=== PATIENT | male | born 1955 | race Caucasian/White ===

== ENCOUNTER → 2020-02-02 07:17 | Outpatient (CLI) | payer OTHER, SELFPAY | DX: N40.0 Benign prostatic hyperplasia without lower urinary tract symptoms (principal) | CPT/HCPCS: 36415; 84153 ==

== ENCOUNTER → 2020-08-15 13:14 | Outpatient (CLI) | payer OTHER, SELFPAY ==
--- NOTE | 2020-08-15 13:16 | DI.RAD.S_ITS ---
PROCEDURE: XR ANKLE RT MIN 3V INDICATIONS: chronic right ankle TECHNIQUE: 3 views of the ankle were acquired. COMPARISON: None. FINDINGS: Bones: No fractures or dislocations. Ankle mortise is normally aligned. No suspicious bony lesions. Mild degenerative joint disease of the tibiotalar joint subtalar joint and talonavicular joint. Calcaneal spurring. Soft tissues: No tibiotalar joint effusion. Achilles tendon appears normal. IMPRESSION: 1. Mild degenerative joint disease. 2. Calcaneal spurring. Dictated by: Radha Moore M.D. on 08/15/2020 at 17:27 Approved by: Radha Moore M.D. on 08/15/2020 at 17:28
== END ==
PROVIDERS: PCP Family Medicine; Referring Provider Family Medicine; Visit Provider Family Medicine
DX: G89.29 Other chronic pain (principal); M25.571 Pain in right ankle and joints of right foot; M19.071 Primary osteoarthritis, right ankle and foot; M77.31 Calcaneal spur, right foot
CPT/HCPCS: 73610

== ENCOUNTER → 2020-08-16 07:48 | Outpatient (CLI) | payer OTHER, SELFPAY ==
[2020-08-16 08:44] LABS: Alanine Aminotransferase 17 IU/L (<50); Albumin Globulin Ratio 1.5 (1.0-2.8); Alkaline Phosphatase 45 U/L (38-126); Aspartate Aminotransferase 27 IU/L (17-59); BUN Creatinine Ratio 35.6 (6-22); Bilirubin Total 0.7 mg/dL (0.2-1.3); Blood Urea Nitrogen 26 mg/dL (9-20); Calcium 9.4 mg/dL (8.4-10.2); Carbon Dioxide 29 mmol/L (22-32); Chloride 106 mmol/L (98-107); Cholesterol 177 mg/dL (140-199); Estimated Glomerular Filt Rate > 60.0 mL/min (>60); Globulin 2.6 g/dL (1.7-4.1); Glucose 92 mg/dL (80-110); HDL Cholesterol 56 mg/dL (40-60); HEMOLYSIS < 15 (0-50); LDL Cholesterol Calculated 106 mg/dL (<100); Potassium 3.9 mmol/L (3.4-5.1); Sodium 139 mmol/L (137-145); Total Protein 6.6 g/dL (6.3-8.2); Triglycerides 74 mg/dL (35-150)
[2020-08-16 09:17] LABS: TSH w/ Reflex to FT4 6.44 uIU/mL (0.47-4.68)
[2020-08-16 09:46] LABS: Free T4, Direct Thyroxine 0.85 ng/dL (0.78-2.19)
== END ==
PROVIDERS: PCP Family Medicine; Referring Provider Family Medicine; Visit Provider Family Medicine
DX: Z00.00 Encounter for general adult medical examination without abnormal findings (principal); I48.91 Unspecified atrial fibrillation
CPT/HCPCS: 36415; 80053; 80061; 83036; 84439; 84443

== ENCOUNTER → 2020-09-16 09:44 | Outpatient (CLI) | payer OTHER, SELFPAY ==
[2020-09-16 12:24] LABS: COVID19 -Nasal RAPID Negative (Negative)
== END ==
PROVIDERS: PCP Family Medicine; Visit Provider Surgery
DX: Z01.812 Encounter for preprocedural laboratory examination (principal); Z20.822 Contact with and (suspected) exposure to COVID-19
CPT/HCPCS: 87635; C9803

== ENCOUNTER 2020-09-17 11:44 | Day surgery (SDC) | payer OTHER, SELFPAY ==
[2020-09-17] MEDS: SODIUM CHLORIDE 0.9% 1,000 ML 200 ML IV (11:51)
[2020-09-17 11:57] VITALS: BP 112/68; PULSE 56; RESP 16; TEMP 36.5; O2SAT 97; BMI 25.1
--- NOTE | 2020-09-17 13:04 | PM.HP.1 ---
History of Present Illness History of Present Illness Date Patient Seen: 09/17/20 Time Patient Seen: 13:04 Chief complaint: SDC Narrative: This is a 65-year-old man with history of colon polyps. His last colonoscopy was 3 years ago. He denies any new symptoms of rectal bleeding, melena, unexplained abdominal pain, unexplained weight loss. He has atrial fibrillation, but says that it is very infrequent, he does not require medication for it. ROS Thirteen system review is otherwise negative other than as mentioned below and in HPI. PE: GENERAL: Well groomed and cooperative. Appears stated age. Answers questions promptly and appropriately. Vital signs noted. HENT: Normocephalic, atraumatic. Hearing intact. EYES: Conjunctiva pink, sclera white, no periorbital swelling. CARDIOVASCULAR: Regular rate. No pedal edema. RESPIRATORY: Non-tachypneic, breathing comfortably on room air. GASTROINTESTINAL: Abdomen soft and non-distended GENITALURINARY: No flank tenderness. MUSCULOSKELETAL: Equal tone and mass bilaterally. SKIN: Warm, dry, soft, appropriate color for ethnicity. No other lesions, rashes, or wounds. NEURO: Alert and Oriented X 3. No gross sensory deficits, or cognitive issues. PSYCH: Appropriate affect and mood. Patient History Medical History Atrial fibrillation Chronic pain of right ankle Colon polyp Surgical History Amblyopia Family & Social History Family History Brother Cancer Social History: household members significant other Tobacco & Substance use: Tobacco type cigars Smoking Status Current every day smoker alcohol intake never Substance Use Type does not use Meds Home Medications and Allergies Home Medications Medication Instructions Recorded Confirmed Type No Known Home Medications 09/17/20 09/17/20 History Allergies Allergy/AdvReac Type Severity Reaction Status Date / Time No Known Drug Allergies Allergy Verified 09/17/20 11:52 Exam Vital Signs (past 8 hours): - 09/17/20 11:57 Temperature 97.7 F Pulse Rate 56 L Respiratory Rate 16 Blood Pressure 112/68 Pulse Oximetry 97 Oxygen Delivery Method Room Air Oxygen Flow Rate 0 Assessment & Plan Assessment and plan (1) Colon polyp: Qualifiers: Colon polyp type: unspecified Colon location: unspecified part of colon Qualified Code(s): K63.5 - Polyp of colon Status: Acute (2) Atrial fibrillation: Qualifiers: Atrial fibrillation type: unspecified Qualified Code(s): I48.91 - Unspecified atrial fibrillation Status: Acute Assessment & Plan narrative: Risks and benefits of screening colonoscopy and possible polypectomy were discussed with the patient including risk of bleeding, perforation, need for additional procedures, risks of anesthesia. The patient desires to proceed with the colonoscopy procedure. COVID-19 COVID-19 status: Negative Result date/Date tested (Pos, Neg/Pending): 09/16/20 Time Spent With Patient Time with patient: 15-24 minutes Quality VTE Deep Vein Thrombosis/Pulmonary Embolism Present on Admission: No
[2020-09-17] MEDS: MIDAZOLAM 5 MG/5 ML VIAL IV (13:08)
[2020-09-17] MEDS: fentaNYL 250 MCG/5 ML INJ IV (13:11)
--- NOTE | 2020-09-17 13:11 | PM.OP.ENDO ---
Operative Date/Time/Diagnoses Date of procedure: 09/17/20 Time of procedure: 13:12 Pre-op diagnosis: Personal history of colon polyps Post-op diagnosis: same (Diverticulosis, no polyps seen on today's exam) Procedure & Clinicians Study performed: Colonoscopy Procedural sedation performed by the endoscopist Same procedure as scheduled: Yes Indications: Personal history colon polyps, due for surveillance Surgeon: Jessica Rodas Procedure Notes SCOAP/Timeout: Performed Scope withdrawal time: 6 Sedation minutes: 26 Findings: diverticulosis Specimen(s): none sent Complications: none Impression: Diverticulosis Post-procedure Recommendations: Colonscopy in 5 years (Due to history of colon polyps) and Other recommendation (Fiber) Follow up: as needed Disposition: PACU
[2020-09-17 13:46] VITALS: BP 94/62; PULSE 55; RESP 12; TEMP 37.1; O2SAT 95
[2020-09-17 13:51] VITALS: BP 96/65; PULSE 53; RESP 8; O2SAT 93
[2020-09-17 13:56] VITALS: BP 99/64; PULSE 54; RESP 8; O2SAT 93
[2020-09-17 14:02] VITALS: BP 115/70; PULSE 53; RESP 12; TEMP 36.9; O2SAT 96
[2020-09-17 14:20] VITALS: BP 111/66; PULSE 54; RESP 14; TEMP 36.3; O2SAT 96
== END 2020-09-17 14:25 | disposition home or self-care (01) ==
PROVIDERS: PCP Family Medicine; Referring Provider Surgery; Visit Provider Surgery
PROC: 0DJD8ZZ Inspection of Lower Intestinal Tract, Via Natural or Artificial Opening Endoscopic (ICD-10-PCS; CPT 45378; principal; 2020-09-17 13:00)
DX: Z12.11 Encounter for screening for malignant neoplasm of colon (principal); Z86.010 Personal history of colon polyps; F17.290 Nicotine dependence, other tobacco product, uncomplicated; I48.91 Unspecified atrial fibrillation; K57.30 Diverticulosis of large intestine without perforation or abscess without bleeding
CPT/HCPCS: 45378; 99152; J2250; J3010

== ENCOUNTER → 2020-12-13 08:18 | Outpatient (CLI) | payer OTHER, SELFPAY | PROVIDERS: PCP Family Medicine; Referring Provider Physician Assistant; Visit Provider Physician Assistant | DX: R21 Rash and other nonspecific skin eruption (principal) | CPT/HCPCS: 87070; 87077; 87147; 87186; 87205 ==

== ENCOUNTER → 2021-09-03 08:13 | Outpatient (CLI) | payer OTHER, SELFPAY ==
[2021-09-03 08:31] LABS: Add Manual Diff / Slide Review NO; Basophils Absolute Auto 0 /uL (0-100); Basophils Percent Auto 0.8 % (0-2); Eosinophils Absolute Auto 100 /uL (0-450); Eosinophils Percent Auto 1.5 % (2-4); Hematocrit 40.8 % (41-53); Hemoglobin 13.7 g/dL (13.5-17.5); Lymphocytes Absolute Auto 1800 /uL (1100-4500); Lymphocytes Percent Auto 42.3 % (25-40); Mean Corpuscular HGB Conc 33.6 % (30-36); Mean Corpuscular Hemoglobin 31.2 PG (26-34); Mean Corpuscular Volume 92.8 fL (80-100); Monocytes Absolute Auto 400 /uL (0-900); Monocytes Percent Auto 9.1 % (3-14); Neutrophils Absolute Auto 2000 /uL (1500-7000); Neutrophils Percent Auto 46.3 % (50-75); Platelet Count 208 X10^3/uL (150-400); Red Cell Distribution Width 13.9 % (11.6-14.8); White Blood Cell Count 4.2 X10^3/uL (4.5-11.0)
[2021-09-03 08:47] LABS: Alanine Aminotransferase 17 IU/L (<50); Albumin 4.4 g/dL (3.5-5.0); Albumin Globulin Ratio 1.8 (1.0-2.8); Alkaline Phosphatase 33 U/L (38-126); Aspartate Aminotransferase 24 IU/L (17-59); BUN Creatinine Ratio 24.1 (6-22); Bilirubin Total 0.8 mg/dL (0.2-1.3); Blood Urea Nitrogen 21 mg/dL (9-20); Calcium 9.2 mg/dL (8.4-10.2); Carbon Dioxide 31 mmol/L (22-32); Chloride 104 mmol/L (98-107); Cholesterol 190 mg/dL (140-199); Estimated Glomerular Filt Rate > 60 mL/min (>60); Globulin 2.5 g/dL (1.7-4.1); Glucose 95 mg/dL (80-110); HDL Cholesterol 57 mg/dL (40-60); HEMOLYSIS < 15 (0-50); LDL Cholesterol Calculated 123 mg/dL (<100); Sodium 139 mmol/L (137-145); Total Protein 6.9 g/dL (6.3-8.2); Triglycerides 49 mg/dL (35-150)
[2021-09-03 09:15] LABS: Prostate Specific Antigen Scrn 2.02 ng/mL (0.1-4.0)
[2021-09-03 10:08] LABS: TSH w/ Reflex to FT4 4.15 uIU/mL (0.47-4.68)
== END ==
PROVIDERS: PCP Family Medicine; Referring Provider Family Medicine; Visit Provider Family Medicine
DX: E03.8 Other specified hypothyroidism (principal); E78.5 Hyperlipidemia, unspecified; I48.91 Unspecified atrial fibrillation; Z12.5 Encounter for screening for malignant neoplasm of prostate
CPT/HCPCS: 36415; 80053; 80061; 84443; 85025; G0103

== ENCOUNTER → 2022-03-19 09:34 | Outpatient (CLI) | payer OTHER, SELFPAY ==
[2022-03-19 11:23] LABS: Prostate Specific Antigen 2.33 ng/mL (0.10-4.00)
== END ==
PROVIDERS: PCP Family Medicine; Referring Provider Urology; Visit Provider Urology
DX: N40.1 Benign prostatic hyperplasia with lower urinary tract symptoms (principal)
CPT/HCPCS: 36415; 84153

== ENCOUNTER → 2022-12-23 08:25 | Outpatient (CLI) | payer MEDICARE, OTHER, SELFPAY ==
[2022-12-23 09:43] LABS: Add Manual Diff / Slide Review NO; Basophils Absolute Auto 0 /uL (0-100); Basophils Percent Auto 0.6 % (0-2); Eosinophils Absolute Auto 100 /uL (0-450); Eosinophils Percent Auto 1.4 % (2-4); Hematocrit 37.2 % (41-53); Hemoglobin 12.8 g/dL (13.5-17.5); Lymphocytes Absolute Auto 1700 /uL (1100-4500); Lymphocytes Percent Auto 42.5 % (25-40); Mean Corpuscular HGB Conc 34.3 % (30-36); Mean Corpuscular Hemoglobin 30.8 PG (26-34); Mean Corpuscular Volume 89.9 fL (80-100); Monocytes Absolute Auto 400 /uL (0-900); Monocytes Percent Auto 8.9 % (3-14); Neutrophils Absolute Auto 1800 /uL (1500-7000); Neutrophils Percent Auto 46.6 % (50-75); Platelet Count 225 X10^3/uL (150-400); Red Blood Cell Count 4.14 X10^6/uL (4.5-5.9); Red Cell Distribution Width 13.7 % (11.6-14.8); White Blood Cell Count 3.9 X10^3/uL (4.5-11.0)
[2022-12-23 10:21] LABS: Alanine Aminotransferase 13 IU/L (<50); Albumin 3.7 g/dL (3.5-5.0); Albumin Globulin Ratio 1.6 (1.0-2.8); Alkaline Phosphatase 48 U/L (38-126); Aspartate Aminotransferase 19 IU/L (17-59); BUN Creatinine Ratio 26.4 (6-22); Bilirubin Total 0.3 mg/dL (0.2-1.3); Blood Urea Nitrogen 19 mg/dL (9-20); Calcium 9.2 mg/dL (8.4-10.2); Carbon Dioxide 29 mmol/L (22-32); Chloride 105 mmol/L (98-107); Cholesterol 160 mg/dL (140-199); Estimated Glomerular Filt Rate > 60 mL/min (>60); Globulin 2.3 g/dL (1.7-4.1); Glucose 90 mg/dL (80-110); HDL Cholesterol 55 mg/dL (40-60); HEMOLYSIS < 15 (0-50); LDL Cholesterol Calculated 94 mg/dL (<100); Potassium 4.3 mmol/L (3.4-5.1); Sodium 139 mmol/L (137-145); Triglycerides 53 mg/dL (35-150)
[2022-12-23 10:24] LABS: TSH w/ Reflex to FT4 8.14 uIU/mL (0.47-4.68)
[2022-12-23 10:48] LABS: Free T4, Direct Thyroxine 0.83 ng/dL (0.78-2.19)
[2022-12-23 10:49] LABS: Prostate Specific Antigen Scrn 2.65 ng/mL (0.1-4.0)
== END ==
PROVIDERS: PCP Family Medicine; Referring Provider Family Medicine; Visit Provider Family Medicine
DX: D72.829 Elevated white blood cell count, unspecified (principal); Z12.5 Encounter for screening for malignant neoplasm of prostate; I48.91 Unspecified atrial fibrillation; K63.5 Polyp of colon
CPT/HCPCS: 36415; 80053; 80061; 84439; 84443; 85025; G0103

== ENCOUNTER → 2023-01-04 09:09 | Outpatient (CLI) | payer MEDICARE, OTHER, SELFPAY | PROVIDERS: PCP Family Medicine; Visit Provider Physician Assistant | DX: L08.9 Local infection of the skin and subcutaneous tissue, unspecified (principal) | CPT/HCPCS: 87070; 87205 ==

== ENCOUNTER → 2023-01-04 09:12 | Outpatient (CLI) | payer MEDICARE, OTHER, SELFPAY ==
[2023-01-04 09:40] LABS: Add Manual Diff / Slide Review NO; Basophils Absolute Auto 0 /uL (0-100); Basophils Percent Auto 0.7 % (0-2); Eosinophils Absolute Auto 0 /uL (0-450); Eosinophils Percent Auto 0.5 % (2-4); Hematocrit 42.4 % (41-53); Hemoglobin 14.7 g/dL (13.5-17.5); Lymphocytes Absolute Auto 1500 /uL (1100-4500); Lymphocytes Percent Auto 24.5 % (25-40); Mean Corpuscular HGB Conc 34.7 % (30-36); Mean Corpuscular Hemoglobin 31.2 PG (26-34); Monocytes Absolute Auto 400 /uL (0-900); Monocytes Percent Auto 6.9 % (3-14); Neutrophils Absolute Auto 4200 /uL (1500-7000); Neutrophils Percent Auto 67.4 % (50-75); Platelet Count 228 X10^3/uL (150-400); Red Blood Cell Count 4.72 X10^6/uL (4.5-5.9); Red Cell Distribution Width 13.7 % (11.6-14.8); White Blood Cell Count 6.3 X10^3/uL (4.5-11.0)
[2023-01-04 10:03] LABS: Iron 146 ug/dL (49-181)
[2023-01-04 10:14] LABS: Percent Iron Saturation 44 % (20-50); Total Iron Binding Capacity 335 ug/dL (261-462); Transferrin 248 mg/dL (206-381)
[2023-01-04 11:02] LABS: Free T4, Direct Thyroxine 0.93 ng/dL (0.78-2.19); HEMOLYSIS 31 (0-50)
[2023-01-05 19:53] LABS: Fecal Immunochemical Test Negative (Negative)
== END ==
PROVIDERS: PCP Family Medicine; Referring Provider Family Medicine; Visit Provider Family Medicine
DX: D72.829 Elevated white blood cell count, unspecified (principal); I48.91 Unspecified atrial fibrillation; K63.5 Polyp of colon; L08.9 Local infection of the skin and subcutaneous tissue, unspecified
CPT/HCPCS: 36415; 82274; 83540; 83550; 84439; 84443; 85025; 87070; 87077; 87147; 87205

== ENCOUNTER 2023-01-16 19:13 | Emergency (ER) | payer MEDICARE, OTHER, SELFPAY ==
[2023-01-16 19:25] VITALS: BP 145/77; PULSE 50; RESP 16; TEMP 36.9; O2SAT 99; BMI 24.4
[2023-01-16] MEDS: PROPARACAINE 0.5% OPHTH SOL 1 DROPS EYE-LEFT (19:51)
[2023-01-16] MEDS: FLUORESCEIN 1 MG STRIP EYE-BOTH (19:51)
--- NOTE | 2023-01-16 20:13 | ED_ITS ---
HPI - General Adult General Chief complaint: Eye Problems Stated complaint: Something in L eye Time Seen by Provider: 01/16/23 19:19 Source: patient Mode of arrival: Ambulatory History of Present Illness HPI narrative: 67-year-old male who is here for evaluation of a potential foreign body in his left eye. He states that he thinks he got something in his left when he was grinding on a piece of metal. It did occur earlier today. He does wear glasses and was wearing these of the time but was not wearing protective eye wear. Related Data Home Medications Medication Instructions Recorded Confirmed nitroglycerin 0.1 mg/hr 1 patch topical DAILY 12/11/22 12/11/22 transdermal 24 hour patch Previous Rx's Medication Instructions Recorded zolpidem 5 mg tablet (Ambien) 5 mg PO BEDTIME PRN sleep #30 tabs 10/14/21 scopolamine base 1 mg over 3 days See Rx Instructions .Route 12/11/22 transdermal patch .COMPLEX #4 patches erythromycin 5 mg/gram (0.5 %) eye 0.5 inch EYE-LEFT BID 3 days #3.5 01/16/23 ointment grams Allergies Allergy/AdvReac Type Severity Reaction Status Date / Time No Known Drug Allergies Allergy Verified 12/11/22 08:19 Review of Systems Eyes Eyes: Reports system reviewed and no additional complaints, except as documented ENT Ears, Nose, Mouth, and Throat: Reports system reviewed and no additional complaints, except as documented Patient History Medical History Abdominal muscle strain Atrial fibrillation Chronic pain of right ankle Colon polyp Sinus bradycardia Welcome to Medicare preventive visit Surgical History Amblyopia Family History Brother Cancer Social History household members: significant other Smoking Status: Current every day smoker alcohol intake: never Smoking Status: Current every day smoker tobacco type: cigars Substance Use Type: does not use Exam Initial Vital Signs Initial Vital Signs: Vital Signs Temperature 98.4 F 01/16/23 19:25 Pulse Rate 50 L 01/16/23 19:25 Respiratory Rate 16 01/16/23 19:25 Blood Pressure 145/77 H 01/16/23 19:25 Pulse Oximetry 99 01/16/23 19:25 Oxygen Delivery Method Room Air 01/16/23 19:25 Const General: cooperative, comfortable and No ill appearing HENKS Head: normal to inspection and normocephalic Face and sinus: normal facial exam Eyes Periorbital: periorbital findings normal Eyelids: eyelids normal Pupils: PERRL Other: There were no foreign bodies noted on the left eye. I inverted the upper and lower eyelids without any indication of foreign body. Fluorescein was used. There was no corneal abrasion noted. Slit lamp was used. No foreign body noted . Pupils were equal round reactive. There was no signs of perforated globe. Course Orders Ordered: Discontinued Medications Erythromycin (Erythromycin Ophth 1 Gm Oint) 1 applic EYE-LEFT NOW ONE Stop: 01/16/23 21:33 Last Admin: 01/16/23 21:57 Dose: 1 applic Documented By: SPF Fluorescein Sodium (Fluorescein 1 Mg Strip) 1 mg EYE-BOTH NOW ONE Stop: 01/16/23 19:20 Last Admin: 01/16/23 19:51 Dose: 1 mg Documented By: SPF Proparacaine HCl (Proparacaine 0.5% Ophth Amanda) 1 drops EYE-LEFT NOW ONE Stop: 01/16/23 19:20 Last Admin: 01/16/23 19:51 Dose: 1 drop Documented By: SPF Vital Signs Vital signs: Vital Signs - 8 hr 01/16/23 22:06 Pulse Rate 50 L Respiratory Rate 16 Blood Pressure 105/69 Pulse Oximetry 98 Oxygen Delivery Method Room Air Medical Decision Making [facility] Narrative Medical decision making narrative: After an extensive evaluation of his left eye there was no foreign body noted. There were no corneal abrasions noted. I have low suspicion for open globe. Both Wood's lamp and slit lamp was used. Fluorescein was used. Did evaluate under the upper eyelid and under the lower eyelid. There is no signs of conjunctivitis. Plan will be is to discharge home with erythromycin ointment both for any antibiotic coverage and also for the soothing nature of the medication. He was given return precautions and follow-up instructions. He expressed understanding and agreement. Discharge Plan Departure Patient Disposition: Home Clinical Impression: Irritation of left eye Activity Restrictions/Additional Instructions: I do not see anything in your left eye on the exam today. I do suspect that there is quite a bit of irritation from everything has been going on. Use the antibiotic ointment like we discussed for the next couple days. If your symptoms persist you will need re-evaluated. Prescriptions: New erythromycin 5 mg/gram (0.5 %) ointment 0.5 inch EYE-LEFT BID 3 Days Qty: 3.5 0RF No Action zolpidem [Ambien] 5 mg tablet 5 mg PO BEDTIME PRN (Reason: sleep) Qty: 30 0RF nitroglycerin 0.1 mg/hr patch 24 hour 1 patch topical DAILY scopolamine base 1 mg over 3 days patch 3 day See Rx Instructions .ROUTE .COMPLEX Qty: 4 11RF Dose Instruction: APPLY 1 PATCH TOPICALLY TO THE SKIN EVERY 3 DAYS NEEDED FOR MOTION SICKNESS Rx Instructions: APPLY 1 PATCH TOPICALLY TO THE SKIN EVERY 3 DAYS NEEDED FOR MOTION SICKNESS Referrals: Titus Arora MD [Primary Care Provider] - Stand Alone Forms: Patient Portal/API
[2023-01-16] MEDS: ERYTHROMYCIN OPHTH 1 GM OINT 1 APPLIC EYE-LEFT (21:57)
[2023-01-16 22:06] VITALS: BP 105/69; PULSE 50; RESP 16; O2SAT 98
== END 2023-01-16 22:06 | disposition home or self-care (01) ==
PROVIDERS: Emergency Provider Emergency Medicine; PCP Family Medicine
DX: H57.89 Other specified disorders of eye and adnexa (principal)
CPT/HCPCS: 99282

== ENCOUNTER → 2023-03-05 16:16 | Outpatient (CLI) | payer MEDICARE, OTHER, SELFPAY ==
--- NOTE | 2023-03-05 16:21 | DI.RAD.S_ITS ---
PROCEDURE: XR KNEE LT 3V INDICATIONS: Injury to Left Knee TECHNIQUE: 3 views of the knee were acquired. COMPARISON: None. FINDINGS: Bones: No fractures or dislocations. No suspicious bony lesions. Soft tissues: No joint effusion. No suspicious soft tissue calcifications. IMPRESSION: No osseous trauma found, normal alignment. Slight narrowing of the medial compartment interspace most likely a manifestation of mild degenerative osteoarthritis. Dictated by: Titi Elias M.D. on 03/05/2023 at 16:49 Approved by: Titi Elias M.D. on 03/05/2023 at 16:49
== END ==
PROVIDERS: PCP Family Medicine; Referring Provider Family Medicine; Visit Provider Family Medicine
DX: S89.92XA Unspecified injury of left lower leg, initial encounter (principal); X58.XXXA Exposure to other specified factors, initial encounter
CPT/HCPCS: 73562

== ENCOUNTER → 2023-03-09 17:17 | Outpatient (CLI) | payer MEDICARE, OTHER, SELFPAY ==
--- NOTE | 2023-03-09 17:21 | DI.MRI.S_ITS ---
PROCEDURE: MR KNEE LT WO CON INDICATIONS: swelling and pain continue after injury TECHNIQUE: Noncontrast sagittal PD fast spin echo and T2 fast spin echo with fat saturation, sagittal 3-D FLASH with fat saturation; coronal T1 spin echo and PD fast spin echo with fat saturation, and axial PD fast spin echo with fat saturation through the knee. COMPARISON: None. FINDINGS: Image quality: Excellent. Menisci: The medial and lateral menisci demonstrate normal morphology and internal signal. The meniscal root ligaments appear intact. Cruciate ligaments: The anterior and posterior cruciate ligaments appear intact. Medial structures: The medial collateral ligament appears mildly thickened at its femoral insertion. The posterior oblique ligament, semimembranosus tendon insertions, oblique popliteal ligament, and meniscocapsular junction appear intact. Visualized portions of the pes anserinus tendons appear normal. No abnormal bursal fluid. Lateral structures: The lateral collateral ligament is thickened at its proximal insertion. The long and short heads of the biceps femoris tendon appear intact. The popliteus tendon appears normal; the popliteofibular ligament appears intact. Iliotibial band appears normal. Anterior structures: There is soft tissue swelling and edema along anterior aspect of left knee joint. Large fluid collection along anterior and medial aspect of left knee measures up to 16.8 x 2.9 x 13.2 cm in largest transverse, AP and craniocaudal dimensions containing internal septations and may indicate fluid distension of prepatellar bursa . Distal quadriceps tendinosis is seen. Proximal patellar tendinosis at its inferior patellar insertion is also noted. No full-thickness tendon rupture. Patellar alignment is normal. No femoral trochlear dysplasia or ventral trochlear prominence. No edema in the infrapatellar fat pad. Bones and cartilage: No bone marrow contusions or fractures. Mild tricompartmental osteoarthritis and low-grade chondromalacia is seen. Joint space: There is physiologic knee joint fluid. No Costello's cyst. Normal appearing synovial plicae are incidentally noted. IMPRESSION: 1. Large fluid collection along anterior and medial aspect of left knee measures up to 16.8 x 2.9 x 13.2 cm in size with thin internal septation and possible internal debris concerning for prepatellar bursal fluid and bursitis. Mild soft tissue swelling along anterior aspect of left knee is also seen. Distal quadriceps and proximal patellar tendinosis. No tendon rupture. 2. Mild tricompartmental osteoarthritis and low-grade chondromalacia. No fracture or dislocation. No suspicious bony lesions. No significant joint effusion. 3. The cruciate ligaments are intact. Low-grade proximal MCL and LCL sprain. 4. No evidence of focal meniscal tear. Dictated by: Brandyn Johnson M.D. on 03/10/2023 at 9:20 Approved by: Brandyn Johnson M.D. on 03/10/2023 at 10:11
== END ==
PROVIDERS: PCP Family Medicine; Referring Provider Family Medicine; Visit Provider Family Medicine
DX: S83.422A Sprain of lateral collateral ligament of left knee, initial encounter (principal); S83.412A Sprain of medial collateral ligament of left knee, initial encounter; M17.12 Unilateral primary osteoarthritis, left knee; M94.262 Chondromalacia, left knee; M25.462 Effusion, left knee; M25.562 Pain in left knee; M79.89 Other specified soft tissue disorders
CPT/HCPCS: 73721

== ENCOUNTER → 2023-03-29 12:04 | Outpatient (CLI) | payer MEDICARE, OTHER, SELFPAY ==
--- NOTE | 2023-03-29 | DI.US.S_ITS ---
PROCEDURE: US PERIPH VENOUS LOW EXTREM LT INDICATIONS: SWELLING. 1 WK POST SX REMOVEL OF OVERTON-LENCHO LESION CALF TECHNIQUE: Real-time imaging, as well as color and pulse Doppler interrogation, were performed of the lower extremity deep veins from the inguinal ligament to the popliteal fossa, with documentation of the visualized calf veins. COMPARISON: None. FINDINGS: The common femoral, femoral, popliteal, and the visualized calf veins are normally compressible, and free of intraluminal thrombus. Color and pulse Doppler demonstrate normal phasic intraluminal flow. There is normal augmentation response to distal compression maneuver. IMPRESSION: No evidence of DVT in visualized left lower extremity veins. Dictated by: Brandyn Johnson M.D. on 03/29/2023 at 12:52 Approved by: Brandyn Johnson M.D. on 03/29/2023 at 12:53
== END ==
PROVIDERS: PCP Family Medicine; Referring Provider Orthopaedic Surgery Foot and Ankle Surgery; Visit Provider Orthopaedic Surgery Foot and Ankle Surgery
DX: M79.89 Other specified soft tissue disorders (principal)
CPT/HCPCS: 93971

== ENCOUNTER → 2023-03-31 08:38 | Outpatient (CLI) | payer MEDICARE, OTHER, SELFPAY ==
[2023-03-31 11:58] LABS: Prostate Specific Antigen 2.34 ng/mL (0.10-4.00)
== END ==
PROVIDERS: PCP Family Medicine; Referring Provider Urology; Visit Provider Urology
DX: Z12.5 Encounter for screening for malignant neoplasm of prostate (principal)
CPT/HCPCS: 36415; 84153; G0103

== ENCOUNTER → 2023-12-27 07:54 | Outpatient (CLI) | payer MEDICARE, OTHER, SELFPAY ==
[2023-12-27 09:01] LABS: Add Manual Diff / Slide Review NO; Basophils Absolute Auto 0 /uL (0-100); Basophils Percent Auto 0.6 % (0-2); Eosinophils Absolute Auto 100 /uL (0-450); Eosinophils Percent Auto 1.2 % (2-4); Hematocrit 40.9 % (41-53); Hemoglobin 14.2 g/dL (13.5-17.5); Lymphocytes Absolute Auto 1500 /uL (1100-4500); Lymphocytes Percent Auto 31.3 % (25-40); Mean Corpuscular HGB Conc 34.6 % (30-36); Mean Corpuscular Hemoglobin 31.6 PG (26-34); Mean Corpuscular Volume 91.4 fL (80-100); Monocytes Absolute Auto 400 /uL (0-900); Monocytes Percent Auto 7.9 % (3-14); Neutrophils Absolute Auto 2800 /uL (1500-7000); Platelet Count 221 X10^3/uL (150-400); Red Blood Cell Count 4.48 X10^6/uL (4.5-5.9); Red Cell Distribution Width 13.4 % (11.6-14.8); White Blood Cell Count 4.7 X10^3/uL (4.5-11.0)
[2023-12-27 09:40] LABS: Alanine Aminotransferase 14 IU/L (<50); Albumin Globulin Ratio 1.8 (1.0-2.8); Alkaline Phosphatase 54 U/L (38-126); Aspartate Aminotransferase 23 IU/L (17-59); Bilirubin Total 0.8 mg/dL (0.2-1.3); Blood Urea Nitrogen 18 mg/dL (9-20); Calcium 9.3 mg/dL (8.4-10.2); Carbon Dioxide 28 mmol/L (22-32); Chloride 105 mmol/L (98-107); Cholesterol 172 mg/dL (140-199); Estimated Glomerular Filt Rate > 60 mL/min (>60); Globulin 2.2 g/dL (1.7-4.1); Glucose 95 mg/dL (80-110); HDL Cholesterol 64 mg/dL (40-60); HEMOLYSIS < 15 (0-50); LDL Cholesterol Calculated 98 mg/dL (<100); Potassium 4.7 mmol/L (3.4-5.1); Sodium 137 mmol/L (137-145); Total Protein 6.2 g/dL (6.3-8.2); Triglycerides 52 mg/dL (35-150)
[2023-12-27 10:09] LABS: Prostate Specific Antigen Scrn 2.37 ng/mL (0.1-4.0)
[2023-12-27 10:10] LABS: TSH w/ Reflex to FT4 6.49 uIU/mL (0.47-4.68)
[2023-12-27 13:39] LABS: Free T4, Direct Thyroxine 0.83 ng/dL (0.78-2.19)
[2023-12-27 17:32] LABS: Hep C Virus Ab w/Reflex Quant NEGATIVE s/c (NEGATIVE)
[2023-12-28 04:10] LABS: Apolipoprotein B 75 mg/dL (<90)
== END ==
PROVIDERS: PCP Family Medicine; Referring Provider Family Medicine; Visit Provider Family Medicine
DX: Z00.00 Encounter for general adult medical examination without abnormal findings (principal); R00.1 Bradycardia, unspecified; Z12.5 Encounter for screening for malignant neoplasm of prostate; K63.5 Polyp of colon
CPT/HCPCS: 36415; 80053; 80061; 82172; 84439; 84443; 85025; 86803; G0103

== ENCOUNTER → 2023-12-29 11:43 | Outpatient (CLI) | payer MEDICARE, OTHER, SELFPAY ==
--- NOTE | 2023-12-29 11:46 | DI.RAD.S_ITS ---
PROCEDURE: XR SHOULDER RT MIN 2V INDICATIONS: collision during soccer, sharp pain to top of shoulder TECHNIQUE: 3 views of the shoulder were acquired. COMPARISON: None. FINDINGS: Bones: No fractures or dislocations. No suspicious bony lesions. Visualized ribs appear intact. Very mild superior subluxation of the clavicle relative to the acromion. Soft tissues: No suspicious soft tissue calcifications. IMPRESSION: Very mild superior subluxation of the clavicle relative to the acromion, which may indicate mild acromioclavicular joint injury. Dictated by: Alexandre Stevenson M.D. on 12/29/2023 at 16:37 Approved by: Alexandre Stevenson M.D. on 12/29/2023 at 16:39
== END ==
PROVIDERS: PCP Family Medicine; Referring Provider Physician Assistant; Visit Provider Physician Assistant
DX: S49.91XA Unspecified injury of right shoulder and upper arm, initial encounter (principal); X58.XXXA Exposure to other specified factors, initial encounter
CPT/HCPCS: 73030

== ENCOUNTER → 2024-04-05 07:48 | Outpatient (CLI) | payer MEDICARE, OTHER, SELFPAY ==
[2024-04-05 08:57] LABS: Prostate Specific Antigen 2.85 ng/mL (0.10-4.00)
== END ==
PROVIDERS: PCP Family Medicine; Referring Provider Urology; Visit Provider Urology
DX: N40.1 Benign prostatic hyperplasia with lower urinary tract symptoms (principal)
CPT/HCPCS: 36415; 84153

== ENCOUNTER → 2024-06-28 10:40 | Outpatient (CLI) | payer MEDICARE, OTHER, SELFPAY ==
--- NOTE | 2024-06-28 10:41 | DI.RAD.S_ITS ---
PROCEDURE: XR HIP W PEL IF DONE YAMINI MIN 4V INDICATIONS: acute on chronic bilateral hip pain, L>R TECHNIQUE: AP pelvis with lateral view(s) of the both hip(s). COMPARISON: None. FINDINGS AND IMPRESSION: No displaced acute fracture or dislocation. Moderate bilateral hip arthrosis, with joint space narrowing and osteophytes. Left greater than right calcific tendinopathy. Pelvic phleboliths. If there is high concern for further derangement, consider MRI evaluation. Dictated by: Devante Gomez M.D. on 06/28/2024 at 12:05 Approved by: Devante Gomez M.D. on 06/28/2024 at 12:06
== END ==
PROVIDERS: PCP Family Medicine; Referring Provider Student in an Organized Health Care Education/Training Program; Visit Provider Student in an Organized Health Care Education/Training Program
DX: M16.0 Bilateral primary osteoarthritis of hip (principal); M25.551 Pain in right hip; M25.552 Pain in left hip
CPT/HCPCS: 73522

== ENCOUNTER → 2024-10-11 06:48 | Outpatient (CLI) | payer MEDICARE, OTHER, SELFPAY ==
[2024-10-13 14:55] LABS: Prostate Specific Antigen 3.42 ng/mL (0.10-4.00)
== END ==
PROVIDERS: PCP Family Medicine; Referring Provider Urology; Visit Provider Urology
DX: N40.1 Benign prostatic hyperplasia with lower urinary tract symptoms (principal); Z80.42 Family history of malignant neoplasm of prostate
CPT/HCPCS: 84153

== ENCOUNTER → 2025-01-31 16:38 | Outpatient (CLI) | payer MEDICARE, OTHER, SELFPAY ==
--- NOTE | 2025-01-31 16:39 | DI.MRI.S_ITS ---
PROCEDURE: MR KNEE RT WO CON INDICATIONS: LIGAMENT TEAR - right TECHNIQUE: Noncontrast sagittal PD fast spin echo and T2 fast spin echo with fat saturation, sagittal 3-D FLASH with fat saturation; coronal T1 spin echo and PD fast spin echo with fat saturation, and axial PD fast spin echo with fat saturation through the knee. COMPARISON: [facility], MR, MR KNEE LT WO CON, 03/09/2023, 17:29. FINDINGS: Image quality: Excellent. Menisci: Abnormal appearance of the anterior horn of the lateral meniscus with a complex vertical and oblique tear extending to the superior surface and anterior margin into the anterior meniscal root. Posterior horn lateral meniscus is intact. Minimal internal globular degenerative signal changes in the posterior horn of the medial meniscus otherwise the medial meniscus is normal. Cruciate ligaments: Mild increased T2 weighted signal and thinning of the mid and distal anterior cruciate ligament but with intact fibers without tear or retraction. Posterior cruciate ligament is normal. Medial structures: Markedly heterogeneous multi septated cystic structure posterior medial soft tissues more medial than typical popliteal cyst may be related to abnormal bursal fluid in total measures up to approximately 3.4 cm AP by 3.4 cm cc by 1.2 cm transverse maximal dimensions. The medial collateral ligament appears intact. The semimembranosus tendon insertions, and meniscocapsular junction appear intact. Visualized portions of the pes anserinus tendons appear normal. Lateral structures: The lateral collateral ligament, long and short heads of the biceps femoris tendon appear intact. The popliteus tendon appears normal. Iliotibial band appears normal. Anterior structures: Mild 5 mm lateral subluxation of the patella. The quadriceps and patellar tendons appear intact. No femoral trochlear dysplasia or ventral trochlear prominence. No edema in the infrapatellar fat pad. Bones and cartilage: No MR evidence of fracture dislocation. Subchondral edema is noted in the lateral femoral condyle anteriorly with an area 5 mm focal cartilage defect. Moderate irregularity and areas of cartilage thinning in the medial femoral condyle and medial tibial plateau cartilage. Mild thinning lateral compartment cartilage. Joint space: Mild knee joint effusion. IMPRESSION: Complex tear anterior horn lateral meniscus. Mild injury/strain anterior cruciate ligament without tear. Multi septated cystic structure posterior medial soft tissues as discussed above. Irregularity and cartilage thinning as discussed above in the lateral femoral condyle and medial compartment. Mild knee joint effusion. Dictated by: Huber Cordero M.D. on 02/02/2025 at 9:47 Approved by: Huber Cordero M.D. on 02/02/2025 at 11:03
== END ==
PROVIDERS: PCP Family Medicine; Referring Provider Physician Assistant; Visit Provider Physician Assistant
DX: S83.271A Complex tear of lateral meniscus, current injury, right knee, initial encounter (principal); S83.421D Sprain of lateral collateral ligament of right knee, subsequent encounter; M25.461 Effusion, right knee
CPT/HCPCS: 73721

== ENCOUNTER → 2025-02-09 09:33 | Outpatient (CLI) | payer MEDICARE, OTHER, SELFPAY ==
--- NOTE | 2025-02-09 09:36 | DI.RAD.S_ITS ---
PROCEDURE: XR ANKLE LT MIN 3V INDICATIONS: chronic left ankle pain TECHNIQUE: 3 views of the ankle were acquired. COMPARISON: [facility], CR, XR ANKLE RT MIN 3V, 08/15/2020, 13:16. FINDINGS: Bones: No fractures or dislocations. Ankle mortise is normally aligned. No suspicious bony lesions. Calcaneal enthesopathy is present. Mild degenerative change at the ankle joint. Soft tissues: No substantial tibiotalar joint effusion. Achilles tendon appears normal. IMPRESSION: No acute bony abnormality or significant effusion. Mild degenerative change. Dictated by: Franklin Abdi M.D. on 02/11/2025 at 22:35 Approved by: Franklin Abdi M.D. on 02/11/2025 at 22:37
== END ==
LOC: RAD 09:36
PROVIDERS: PCP Family Medicine; Referring Provider Family Medicine; Visit Provider Family Medicine
DX: S86.012A Strain of left Achilles tendon, initial encounter (principal); M25.572 Pain in left ankle and joints of left foot
CPT/HCPCS: 73610

== ENCOUNTER → 2025-02-09 19:34 | Outpatient (CLI) | payer MEDICARE, OTHER, SELFPAY ==
--- NOTE | 2025-02-09 19:38 | DI.MRI.S_ITS ---
PROCEDURE: MR ANKLE LT WO CON INDICATIONS: chronic left ankle pain TECHNIQUE: Noncontrast sagittal T1 spin echo and T2 fast spin echo with fat saturation, axial proton density fast spin echo and T2 fast spin echo with fat saturation, coronal T1 spin echo and T2 fast spin echo with fat saturation through the ankle/hindfoot. COMPARISON: None. FINDINGS: Quality: Adequate Extensor tendons: Unremarkable. Medial ankle tendons: Posterior tibialis tendon: Intact. Flexor digitorum longus tendon: Intact. Flexor hallucis longus tendon: Intact. Medial ankle ligaments: Deltoid ligament, superficial and deep: Intact Spring ligaments: Intact. Lateral ankle tendons: Peroneus brevis tendon: Intact. Peroneus longus tendon: Contour abnormality of the peroneus longus tendon inframalleolar portion for instance on series 6, image 26. Lateral ankle ligaments: Tibiofibular ligaments: Intact Anterior talofibular ligament: Intact. Posterior talofibular ligament: Intact. Calcaneofibular ligament: Intact. Achilles tendon: Thickening of the noninsertional Achilles tendon. Plantar fascia: Calcaneal spurring without plantar fascial thickening or edema. Sinus tarsi: Unremarkable. Tarsal tunnel: Unremarkable. Cartilage: No focal defect identified. Bones: No fracture. Joints: No effusion. Other: None. IMPRESSION: Suspect partial tear peroneus longus tendon. Achilles tendinopathy. Dictated by: Sly Gomes M.D. on 02/12/2025 at 12:50 Approved by: Sly Gomes M.D. on 02/12/2025 at 12:56
== END ==
PROVIDERS: PCP Family Medicine; Referring Provider Family Medicine; Visit Provider Family Medicine
DX: S86.012A Strain of left Achilles tendon, initial encounter (principal); M25.572 Pain in left ankle and joints of left foot; X58.XXXA Exposure to other specified factors, initial encounter
CPT/HCPCS: 73610; 73721

== ENCOUNTER → 2025-02-14 17:33 | Outpatient (ROUT) | payer MEDICARE, OTHER, SELFPAY | PROVIDERS: PCP Family Medicine | DX: R21 Rash and other nonspecific skin eruption (principal); Z79.899 Other long term (current) drug therapy; L23.89 Allergic contact dermatitis due to other agents; L24.9 Irritant contact dermatitis, unspecified cause | CPT/HCPCS: 87070; 87075; 87102; 87205 ==

== ENCOUNTER → 2025-03-05 09:21 | Outpatient (CLI) | payer MEDICARE, OTHER, SELFPAY ==
[2025-03-05 10:04] LABS: Add Manual Diff / Slide Review NO; Hematocrit 40.7 % (41-53); Hemoglobin 13.7 g/dL (13.5-17.5); Lymphocytes Absolute Auto 1400 /uL (1100-4500); Mean Corpuscular HGB Conc 33.6 % (30-36); Mean Corpuscular Hemoglobin 30.8 PG (26-34); Mean Corpuscular Volume 91.7 fL (80-100); Platelet Count 187 X10^3/uL (150-400)
[2025-03-05 10:23] LABS: Alanine Aminotransferase 20 IU/L (<50); Albumin 4.0 g/dL (3.5-5.0); Albumin Globulin Ratio 1.7 (1.0-2.8); Alkaline Phosphatase 46 U/L (38-126); Blood Urea Nitrogen 27 mg/dL (9-20); Calcium 9.5 mg/dL (8.4-10.2); Carbon Dioxide 25 mmol/L (22-32); Chloride 107 mmol/L (98-107); Cholesterol 176 mg/dL (140-199); Estimated Glomerular Filt Rate > 60 mL/min (>60); Globulin 2.3 g/dL (1.7-4.1); Glucose 95 mg/dL (70-99); HDL Cholesterol 57 mg/dL (40-60); HEMOLYSIS 53 (0-50); Potassium 4.6 mmol/L (3.4-5.1); Sodium 138 mmol/L (137-145); Total Protein 6.3 g/dL (6.3-8.2); Triglycerides 46 mg/dL (35-150)
[2025-03-05 10:52] LABS: TSH w/ Reflex to FT4 4.27 uIU/mL (0.47-4.68)
== END ==
PROVIDERS: PCP Family Medicine; Referring Provider Family Medicine; Visit Provider Family Medicine
DX: I48.91 Unspecified atrial fibrillation (principal); R00.1 Bradycardia, unspecified; Z12.5 Encounter for screening for malignant neoplasm of prostate; D64.9 Anemia, unspecified; K63.5 Polyp of colon
CPT/HCPCS: 36415; 80053; 80061; 84443; 85025; G0103